=== PATIENT | female | born 1965 | race Caucasian/White ===

== ENCOUNTER 2016-06-20 10:50 | Emergency (ER) | payer BC, OTHER ==
[2016-06-20] MEDS ORDERED: PREDNISONE 20 MG TAB PO ONE (10:59)
[2016-06-20] MEDS ORDERED: ALBUTEROL SULFATE (0.083%) 2.5 MG/3 ML NEB INH ONE (11:00)
--- NOTE | 2016-06-20 11:02 | Emergency Department Record ---
History of Present Illness - General Chief Complaint: Wheezing Stated Complaint: COUGH,WHEEZING Time Seen by Provider: 06/20/16 10:58 Source: Patient Mode of Arrival: Ambulatory Limitations: No limitations - History of Present Illness Initial Comments: 51 yo female presents with cough and wheezing for 4 days. She reports she has had coughing on and off over the last 1 month. She was treated with 2 courses of antibiotics but the symptoms return. She feels wheezy. She is not a smoker. No fever. She has some nasal drainage as well. MD Complaint: Wheezing, Other (Cough) -: Days(s) (4) Severity: Moderate Context: Recent URI Associated Symptoms: Dry cough - Related Data Current Asthma Therapy: None Previous Rx's Medication Instructions Recorded Benzonatate [Tessalon] 1 cap PO Q8H PRN #20 cap 06/20/16 Prednisone [Prednisone 20Mg] 20 mg PO BID #10 tab 06/20/16 Allergies Allergy/AdvReac Type Severity Reaction Status Date / Time Penicillins Allergy HIVES Verified 06/20/16 11:05 Review of Systems Constitutional: Denies: Chills, Fever, Malaise, Weakness Eyes: Denies: Eye discharge, Eye pain, Photophobia, Vision change ENT: Reports: Congestion, Ear pain, Throat pain Respiratory: Reports: Cough, Wheezes. Denies: Dyspnea, Hemoptysis, Stridor Cardiovascular: Denies: Chest pain, Palpitations, Syncope Endocrine: Denies: Fatigue Gastrointestinal: Denies: Abdominal pain, Diarrhea, Nausea, Vomiting Genitourinary: Denies: Dysuria Musculoskeletal: Denies: Arthralgia, Back pain, Joint swelling, Myalgia Skin: Denies: Bruising, Change in color, Rash Neurological: Denies: Confusion, Headache Psychiatric: Denies: Anxiety Hematological/Lymphatic: Denies: Blood Clots, Easy bleeding, Easy bruising Physical Exam - General General Appearance: Alert, Oriented x3, Cooperative, No acute distress Limitations: No limitations - Head Head exam: Normal inspection - Eye Eye exam: Normal appearance, PERRL. negative: Conjunctival injection, Periorbital swelling - ENT ENT exam: Normal exam, Mucous membranes moist, Normal external ear exam, Normal orophraynx, TM's normal bilaterally Ear exam: Normal external inspection. negative: External canal tenderness Nasal Exam: Normal inspection. negative: Discharge, Sinus tenderness Mouth exam: Normal external inspection, Tongue normal Teeth exam: Normal inspection. negative: Dental caries Throat exam: Normal inspection. negative: Tonsillar erythema, Tonsillar exudate - Neck Neck exam: Normal inspection, Full ROM. negative: Tenderness - Respiratory Respiratory exam: Decreased breath sounds, Wheezes (with end expiration, very mild, non labored). negative: Accessory muscle use, Prolonged expiratory, Rhonchi, Stridor - Cardiovascular Cardiovascular Exam: Regular rate, Normal rhythm, Normal heart sounds - GI/Abdominal GI/Abdominal exam: Soft - Rectal Rectal exam: Deferred - exam: Deferred - Extremities Extremities exam: Normal inspection, Full ROM, Normal capillary refill. negative: Tenderness - Back Back exam: Reports: Normal inspection, Full ROM. Denies: Muscle spasm, Rash noted, Tenderness - Neurological Neurological exam: Alert, Normal gait, Oriented X3 - Psychiatric Psychiatric exam: Normal affect, Normal mood - Skin Skin exam: Dry, Intact, Normal color, Warm Course - Reevaluation(s) Reevaluation #1: The CXR was reviewed. read as right infra hiler fullness may be artifact, recommend follow up CXR or CT The patient was informed. She is to follow up with her PCP for a recheck and repeat XR or CT at that time DC on Prednisone, albuterol and Tessalon. 06/20/16 11:50 Disposition Disposition: Discharge Clinical Impression: Bronchitis Disposition: Home, Self-Care Condition: (1) Good Instructions: Asthma (ED) Additional Instructions: Call your doctor for follow up of this ER visit and recheck after today's CXR Return if worse, fever, productive cough or any new concerns Prescriptions: Prednisone [Prednisone 20Mg] 20 mg PO BID #10 tab Benzonatate [Tessalon] 1 cap PO Q8H PRN #20 cap PRN Reason: Cough Forms: Patient Portal Access Time of Disposition: 11:55
[2016-06-20] MEDS ORDERED: ALBUTEROL HFA 8 GM INHALER INH PRN (11:53)
--- NOTE | 2016-06-24 10:23 | RADIOLOGY REPORT ---
DATE: 06/20/2016. EXAM: CHEST. HISTORY: Ill for one month. Wheezing, cough, with some minimal sputum. TECHNIQUE: Chest x-ray, two views, were obtained. COMPARISON: None. FINDINGS: The heart is not enlarged and there is no mediastinal mass. There is some fullness in the right infrahilar region. The lungs otherwise appear clear. No vascular congestion identified. IMPRESSION: 1. SOME FULLNESS IN THE RIGHT INFRAHILAR REGION. THIS COULD JUST REPRESENT SUPERIMPOSITION ARTIFACT. INFILTRATE OR NODULE WOULD BE DIFFICULT TO EXCLUDE. FURTHER EVALUATION WITH FOLLOW UP RADIOGRAPHS OR CHEST CT COULD BE OBTAINED. 2. OTHERWISE UNREMARKABLE. JOB NUMBER: [id number] MTDD
== END 2016-06-20 12:35 | disposition home or self-care (01) ==
LOC: ER 10:50
DX: J20.9 Acute bronchitis, unspecified (principal); R06.2 Wheezing
CPT/HCPCS: 99283 ×2; 71020; 94640; 94664; J7512; J7613